=== PATIENT | female | born 1980 | race African-American/Black ===

== ENCOUNTER 2020-02-26 14:46 | Outpatient (REF) | payer OTHER, SELFPAY ==
[2020-02-27 09:37] LABS: BV Int Neg Control Negative (Negative); BV Int Pos Control Positive (Positive)
[2020-02-29 08:42] LABS: HPV mRNA E6/E7 rflx Not Detected (Not Detected)
[2020-03-03 11:32] LABS: CT PCR NOT DETECTED (Not Detect.); NG PCR NOT DETECTED (Not Detect.)
== END 2020-02-26 14:47 | disposition home or self-care (01) ==
LOC: HO.LAB 14:46
PROVIDERS: Visit Provider Advanced Practice Midwife
DX: Z01.419 Encounter for gynecological examination (general) (routine) without abnormal findings (principal); N89.8 Other specified noninflammatory disorders of vagina; I10 Essential (primary) hypertension; E66.9 Obesity, unspecified; R87.610 Atypical squamous cells of undetermined significance on cytologic smear of cervix (ASC-US); Z30.09 Encounter for other general counseling and advice on contraception; Z20.2 Contact with and (suspected) exposure to infections with a predominantly sexual mode of transmission; Z79.899 Other long term (current) drug therapy
CPT/HCPCS: 87480; 87491; 87510; 87591; 87624; 87625; 87660; 88142

== ENCOUNTER 2021-01-26 10:56 | Outpatient (REF) | payer SELFPAY ==
[2021-01-26 11:10] LABS: Hematocrit 34.9 % (37.0-47.0); Hemoglobin 11.2 g/dl (12.0-16.0); Mean Corpuscular HGB Conc 32.1 g/dl (31.0-35.0); Mean Corpuscular Hemoglobin 29.2 pg (27.0-33.0); Mean Corpuscular Volume 91.1 fL (80.0-98.0); Mean Platelet Volume 8.8 fL (9.4-12.3); Platelet Count 373 X10*3/uL (160-400); Red Blood Count 3.83 X10*6/uL (4.20-5.50); Red Cell Distribution Width 16.1 % (11.0-16.0); White Blood Count 5.7 X10*3/uL (4.8-10.8)
[2021-01-26 11:55] LABS: Estimated Average Glucose 103 mg/dL; Hemoglobin A1c % 5.2 %
[2021-01-26 12:10] LABS: TSH reflex Free T4 1.75 uIU/mL (0.32-4.0)
[2021-01-26 12:15] LABS: Creatinine Urine 73.11 mg/dL; Microalbum/Creatinine Ratio Ur 28.7 ug/mg cr
[2021-01-26 12:24] LABS: Alanine Aminotransferase 13 U/L (0-31); Alkaline Phosphatase 53 U/L (39-117); Anion Gap 10 (12-20); Aspartate Amino Transferase 21 U/L (5-31); Bilirubin Total 0.4 mg/dL (0.0-1.0); Blood Urea Nitrogen 9 mg/dL (9-16); Calcium 9.3 mg/dL (8.4-10.2); Carbon Dioxide 29 mmol/L (22-29); Chloride 103 mmol/L (96-108); Cholesterol 174 mg/dL; Estimated Glomerular Filt Rate > 60; Glucose Fasting 99 mg/dL (60-99); HDL Cholesterol 69 mg/dL; LDL Cholesterol Calculated 93 mg/dl; Sodium 138 mmol/L (135-145); Total Protein 6.9 g/dL (6.5-8.0); Triglycerides 60 mg/dL
== END 2021-01-26 10:57 | disposition home or self-care (01) ==
LOC: HO.LAB 10:56
PROVIDERS: PCP Physician Assistant; Visit Provider Physician Assistant
DX: I10 Essential (primary) hypertension (principal); E66.9 Obesity, unspecified
CPT/HCPCS: 36415; 80053; 80061; 82043; 83036; 84443; 85027

== ENCOUNTER 2022-04-20 08:30 | Outpatient (REF) | payer OTHER, SELFPAY ==
[2022-04-22 17:58] LABS: HPV mRNA E6/E7 rflx Not Detected (Not Detected)
== END 2022-04-20 08:31 | disposition home or self-care (01) ==
LOC: HO.LNP 08:30
PROVIDERS: PCP Physician Assistant; Visit Provider Advanced Practice Midwife
DX: Z01.419 Encounter for gynecological examination (general) (routine) without abnormal findings (principal); Z11.51 Encounter for screening for human papillomavirus (HPV); N89.8 Other specified noninflammatory disorders of vagina; F43.9 Reaction to severe stress, unspecified
CPT/HCPCS: 81003; 87624; 88142

== ENCOUNTER 2022-04-20 09:14 | Outpatient (REF) | payer OTHER, SELFPAY ==
[2022-04-21 09:00] LABS: BV Int Neg Control Negative (Negative); BV Int Pos Control Positive (Positive)
== END 2022-04-20 09:15 | disposition home or self-care (01) ==
LOC: HO.LAB 09:14
PROVIDERS: Visit Provider Advanced Practice Midwife
DX: N89.8 Other specified noninflammatory disorders of vagina (principal)
CPT/HCPCS: 87480; 87510; 87660

== ENCOUNTER 2023-01-26 09:09 | Outpatient (AMB) | payer OTHER, SELFPAY ==
[2023-01-26 09:14] VITALS: BP 166/102; PULSE 96; RESP 16; O2SAT 98; BMI 41.4
--- NOTE | 2023-01-26 09:14 | A.OFFPC_ITS ---
Vital Signs 01/26/23 09:14 Height 5 ft 10 in Weight 288 lb 6 oz BMI 41.4 BP 166/102 H Blood Pressure Location Lt brachial Position Sitting Respiration 16 Pulse 96 Pulse Source Pulse Oximeter Pulse Oximetry (%) 98 Oxygen Delivery Method Room Air Intake Visit Reasons: Annual Exam+ NEEDS PHQ9/THRIVE Intake Note: Patient is here today for a physical. 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 Accompanied by: Self / Same As Patient Allergies codeine [CODEINE] Allergy (Intermediate, Verified 01/26/23 09:26) ANGIOEDEMA,HIVES,ITCHY Medication List - Last Reconciled 01/26/23 by Joseph Bradley PA-C cholecalciferol (vitamin D3) 50 mcg PO DAILY 90 days clotrimazole 1% topical hydrochlorothiazide 25 mg PO DAILY 90 days lisinopril 40 mg PO DAILY 90 days Tobacco use date assessed: 01/26/23 Dental Screening Dental Screen Date: 01/26/23 Did you have a dental visit in the last 12 months?: Yes Did you have a dental problem in the last 6 months where you did not have access to dental care?: No Was dental information given to patient?: Patient has dentist HPI Annual Exam+ NEEDS PHQ9/THRIVE HPI Details Paige is a 42 y/o F here today for a PE. Past medical history of hypertension, obesity, chronic bilateral ear congestion and frequent infections .. HTN: todays blood pressure elevated , she believes her blood pressure elevated due to poor eating habits lately. She reports blood pressures at home have been more stable 120s to 130s systolic. .. Obesity: Have noted weight gain since last office visit.? She does understand she does need to reduce her weight with diet and exercise.? Has been trying to increase her physical activity and go to the gym. .. Recurrent otitis media: Has followed up with ENT, has found to have bilateral fungal ear infections. She was started on topical antifungal treatment.. She does report getting MRI of her contour structures and is awaiting on results. 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 ?Vaccines:? UTD with COVID vaccine, Up-to-date with Tdap , Declines FLu vaccine today .. Mammo: Needs screening mammogram- has been ordered by MACHINE SETUP OPERATOR Laboratory Tests 01/26/21 11:00 Creatinine 0.89 Hemoglobin A1c % 5.2 Cholesterol 174 PFSH Medical History Atypical squamous cells of undetermined significance (ASC-US) on cervical Pap smear LEANN II (cervical intraepithelial neoplasia II) Essential hypertension Surgical History H/O LEEP Hx of tooth extraction History of therapeutic Hx of section Family History Paternal Grandfather History of throat cancer Father Diabetes CVD (cardiovascular disease) Hypertension Mother Hypertension Brother Hypertension Brother In good health Daughter In good health Daughter In good health Social History (Updated 01/26/23 @ 09:30 by Joseph Bradley PA-C) Housing: House Alcohol intake: current Alcohol intake frequency: holidays/special occasions only Patient Tobacco Use Status: Former Tobacco user Quit Date: 2015 e-Cigarette/Vaping Use: Never Used service: No Current occupational status: employed 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 1. Little interest or pleasure in doing things: not at all 2. Feeling down, depressed, or hopeless: not at all 3. Trouble falling or staying asleep, or sleeping too much: not at all 4. Feeling tired or having little energy: not at all 5. Poor appetite or overeating: not at all 6. Feeling bad about yourself - or that you are a failure or have let yourself or your family down: not at all 7. Trouble concentrating on things, such as reading the newspaper or watching television: not at all 8. Moving or speaking so slowly that other people could have noticed. Or the opposite - being so fidgety or restless that you have been moving around a lot more than usual: not at all 9. Thoughts that you would be better off or of hurting yourself in some way: not at all Total score: 0 Depression Screening Interpretation: Negative Depression Screening Done: Yes 69482 - PHQ-9 Billing: Yes Source: Developed by Drs. Hernando Woodard, Naun Santana and colleagues, with an educational garry from [employer]. Thrive Questionnaire Date Thrive assessed: 01/26/23 I am a: Patient What is your living situation today?: I have a steady place to live Within the past 12 months, did the food you bought not last and you didn't have the money to get more?: Never true Within the past 12 months, did you worry whether your food would run out before you got money to buy more?: Never true Do you have trouble paying for medicines?: No Do you have trouble getting transportation to medical appointments?: No Do you have trouble paying your heating and electricity bill?: No Do you have trouble taking care of your child, family member or friend?: No Do you have trouble with day-to-day activities such as bathing, preparing meals, shopping, managing finances, etc.?: No Are you currently unemployed and looking for a job?: No Are you interested in more education?: No Please select the resources that you would like help with: None Currently or been in a relationship where the following occur: no concerns reported AUDIT C Alcohol Use Questionnaire (AUDIT-C) 1. How often do you have a drink containing alcohol?: Never 3. How often do you have six or more drinks on one occasion?: Never Total Score: 0 ANAT-7 AMB Questionnaire ANAT-7 Date ANAT - 7 assessed: 01/26/23 Feeling nervous, anxious, or on edge: 0 = Not at all Not being able to stop or control worryin = Not at all Worrying too much about different things: 0 = Not at all Trouble relaxin = Not at all Being so restless that it is hard to sit still: 0 = Not at all Becoming easily annoyed or irritable: 0 = Not at all Feeling afraid as if something awful might happen: 0 = Not at all Total ANAT-7 score (0-4 normal; 5-9 mild; 10-14 moderate; 15-21 severe): 0 Source: Developed by Dorene Greenberg Kurt Kroenke and colleagues, with an educational garry from [employer]. ANAT-7 Assessment Billing ANAT-7 Assessment Tool: ANAT-7 Assessment 93246 Review of Systems Const Denies body aches, Denies chills, Denies excessive sweating, Denies fatigue, Denies fever(s) and Denies headache(s) Eyes Denies blurry vision ENT Denies dysphagia, Denies vertigo, Denies dizziness, Denies headache(s), Denies hearing loss and Denies tinnitus Card Denies chest pain, Denies chest pain with activity, Denies syncope, Denies irregular heart rhythm and Denies dyspnea Resp Denies chest congestion, Denies cough, Denies hemoptysis, Denies dyspnea and Denies wheezing GI Denies abdominal pain, Denies melena, Denies hematochezia, Denies coffee ground emesis, Denies dysphagia, Denies diarrhea, Denies nausea and Denies vomiting Denies urinary frequency, Denies dysuria, Denies urinary hesitancy and Denies urinary urgency Musc Denies arthralgias, Denies limited range of motion, Denies muscle cramps and Denies muscle weakness Skin/Breast Denies rash and Denies skin ulcer Neuro Denies Abnormal speech present, Denies confusion, Denies vertigo, Denies dizziness, Denies syncope, Denies headache(s), Denies memory loss and Denies seizure-like activity Psych Denies anxiety, Denies confusion, Denies depression, Denies memory loss, Denies panic attacks and Denies paranoia Endo Denies excessive sweating, Denies fatigue, Denies flushing, Denies polydipsia and Denies polyuria Aller/Immun Denies wheezing Physical exam (Primary Care) BMI result Body Mass Index 41.4 BMI Assessment/Plan discussion: High Tobacco/Smoking Status: Tobacco use Status Tobacco use date assessed 01/19/22 01/26/23 09:15 Patient Tobacco Use Status Former Tobacco user 01/26/23 09:15 e-Cigarette/Vaping Use Never Used 01/26/23 09:15 Depression Screening Interpretation: Negative Currently or been in a relationship where the following occur: no concerns reported Const Other: OBESE General: cooperative, comfortable, no acute distress, alert and awake; No confusion Orientation/consciousness: oriented to person, oriented to place, patient oriented x3 and No confusion HENMT Head: Yes normocephalic Ears: external ears normal and TM's normal bilaterally Face and sinus: No sinus tenderness Mouth: Normal oral and palatal mucosa present and tongue normal Teeth and gingiva: dentition normal and gingiva normal Throat: Yes posterior oropharynx normal, Yes tonsils normal and Yes uvula midline Eyes Conjunctivae: conjunctivae normal Sclerae: sclerae normal Pupils: Equal, round and reactive pupils present EOM: EOMs intact bilaterally Direct Ophthalmoscopy: No no photophobia Neck Neck: Yes no lymphadenopathy, No tender and Yes no JVD Thyroid: Thyroid normal Carotids: no bruits Chest Chest palpation & inspection: no tenderness Resp Effort & Inspection: normal respiratory effort, no audible wheezes, not labored and no stridor Auscultation: no crackles, no rales, no rhonchi and no wheezes Cardio Jugular venous distension: no JVD Rate: regular rate, not bradycardic and not tachycardic Rhythm: regular rhythm Bruits: no carotid bruits Peripheral pulses: Peripheral pulses 2+ throughout GI Inspection: Yes normal to inspection, No abdominal wall ecchymosis and No visible herniation Palpation (GI): Soft to palpation, nontender, no guarding, not rigid and No hepatosplenomegaly present Auscultation: normoactive bowel sounds General: Yes no CVA tenderness Back/Spine/Pelvis Back: no CVA tenderness and No back tenderness Cervical Spine: cervical ROM normal Thoracic/Lumbar Spine: thoracic and lumbar spine normal to inspection, straight leg raise negative bilaterally, No thoraco-lumbar ROM limited and No lumbar spinal tenderness Skin Lesions: no lesions Rashes: no rashes Wounds: no wounds Neuro General: oriented to person, oriented to place, patient oriented x3, CN's II-XI intact bilaterally and No confusion Cranial nerves: Yes Equal, round and reactive pupils present and Yes Normal accommodation reflex present Cognition (Neuro): normal cognition Speech: No Abnormal speech present Gait exam (Neuro): Normal gait present Motor exam (neuro): 5/5 motor strength present throughout Extrem Right upper extremity: full ROM; no cyanosis Left upper extremity: full ROM; no cyanosis Right lower extremity: no edema Left lower extremity: no edema Psych Appearance: grossly normal Mental Status: mental status grossly normal Affect: normal affect Attitude: cooperative Thought process: Normal thought process present Assessment and Plan Assessment & Plan (1) Annual physical exam: Code(s): Z00.00 - Encounter for general adult medical examination without abnormal findings (2) Obese: Code(s): E66.9 - Obesity, unspecified Qualifiers: Obesity type: due to excess calories Obesity classification: adult class 3 (BMI >= 40) Serious obesity comorbidity presence: without serious comorbidity Body mass index: BMI 40.0-44.9 Qualified Code(s): E66.01 - Morbid (severe) obesity due to excess calories; Z68.41 - Body mass index [BMI]40.0- 44.9, adult Plan: Patient does understand her BMI is over 30 will work on being more physically active and adapting to better eating habits to reduce her weight. Has been using some natural supplements and has been able to lose some weight since last office visit. (3) Essential hypertension: Code(s): I10 - Essential (primary) hypertension Plan: Blood pressure elevated today in office. She does understand her blood pressure elevates when she is not on regular exercise routine and heating poorly.. She normally gets 120s to 130 systolic at home. Will continue her current dose of blood pressure medications at this time. Goal blood pressure to be more consistently below 140/90. (4) Recurrent otitis media: Code(s): H66.90 - Otitis media, unspecified, unspecified ear Qualifiers: Otitis media type: suppurative Chronicity: acute Laterality: bilateral Spontaneous tympanic membrane rupture: without spontaneous rupture Qualified Code(s): H66.006 - Acute suppurative otitis media without spontaneous rupture of ear drum, recurrent, bilateral Plan: Has followed up with ENT specialist. Was found to have bilateral ear fungal infections. Has given it topical fungal treatment which has resolved her symptoms. Has had recent MRI of brain and is awaiting results. (5) Anemia: Code(s): D64.9 - Anemia, unspecified Qualifiers: Anemia type: unspecified type Qualified Code(s): D64.9 - Anemia, unspecified Plan: Noted anemia most recent labs. Will recheck her CBC. Orders: Orders Comprehensive Yeso. Panel Fast Today I10 - Essential (primary) hypertension Microalbumin, Random (w Creat) Today I10 - Essential (primary) hypertension Complete Blood Count no Diff Today I10 - Essential (primary) hypertension IRON PROFILE Today D50.9 - Iron deficiency anemia, unspecified, D64.9 - Anemia, unspecified Medications: New lisinopril 40 mg PO DAILY 90 days 90 tabs 1RF I10 - Essential (primary) hypertension Refilled cholecalciferol (vitamin D3) 50 mcg PO DAILY 90 days 90 tabs 2RF E66.01 - Morbid (severe) obesity due to excess calories, Z68.41 - Body mass index [BMI] 40.0-44.9, adult hydrochlorothiazide 25 mg PO DAILY 90 days 90 tabs 1RF I10 - Essential (primary) hypertension Discontinued lisinopril Discontinued Reason: Doctor's Order 30 mg PO DAILY 90 days 90 tabs 1RF I10 - Essential (primary) hypertension Coding Level of Care Code Est Pt Prev Care 40-64y(81981) Diagnoses Annual physical exam Z00.00 Class 3 severe obesity due to excess calories without serious comorbidity with body mass index (BMI) of 40.0 to 44.9 in adult E66.01; Z68.41 Obesity type: due to excess calories Obesity classification: adult class 3 (BMI >= 40) Serious obesity comorbidity presence: without serious comorbidity Body mass index: BMI 40.0-44.9 Essential hypertension I10 Recurrent acute suppurative otitis media without spontaneous rupture of tympanic membrane of both sides H66.006 Otitis media type: suppurative Chronicity: acute Laterality: bilateral Spontaneous tympanic membrane rupture: without spontaneous rupture Anemia, unspecified type D64.9 Anemia type: unspecified type Additional Codes ANAT-7 Assessment Billing - ANAT-7 Assessment Tool: ANAT-7 Assessment [id number] ([id number])
== END 2023-01-26 09:55 | disposition home or self-care (01) ==
PROVIDERS: Visit Provider Physician Assistant
DX: Z00.00 Encounter for general adult medical examination without abnormal findings (principal); E66.01 Morbid (severe) obesity due to excess calories; Z68.41 Body mass index [BMI] 40.0-44.9, adult; I10 Essential (primary) hypertension; H66.006 Acute suppurative otitis media without spontaneous rupture of ear drum, recurrent, bilateral; D64.9 Anemia, unspecified
CPT/HCPCS: 99396

== ENCOUNTER 2023-11-01 10:18 | Outpatient (AMB) | payer OTHER, SELFPAY ==
--- NOTE | 2023-11-01 10:28 | A.OFFPC_ITS ---
Vital Signs 11/01/23 10:33 Height 5 ft 10 in Weight 284 lb 4 oz BMI 40.8 BP 136/88 Blood Pressure Location Lt brachial Position Sitting Pulse 103 H Pulse Source Pulse Oximeter Pulse Oximetry (%) 98 Oxygen Delivery Method Room Air Intake Visit Reasons: f/u HTN Medical Lab Technologist Required: No Accompanied by: Self / Same As Patient Allergies codeine [CODEINE] Allergy (Intermediate, Verified 11/01/23 10:54) ANGIOEDEMA,HIVES,ITCHY Medication List - Last Reconciled 11/01/23 by Joseph Bradley PA-C cholecalciferol (vitamin D3) 50 mcg PO DAILY 90 days clotrimazole 1% topical hydrochlorothiazide 25 mg PO DAILY 90 days lisinopril 40 mg PO DAILY 90 days Tobacco use date assessed: 11/01/23 Dental Screening Dental Screen Date: 11/01/23 Did you have a dental visit in the last 12 months?: Yes Did you have a dental problem in the last 6 months where you did not have access to dental care?: No Was dental information given to patient?: Patient has dentist HPI f/u HTN HPI Details Paige is a 43 y/o F here today for a follow-up visit Past medical history of hypertension, obesity, chronic bilateral ear congestion and frequent infections .. HTN: todays blood pressure acceptable today in office. Patient continues on hydrochlorothiazide and lisinopril 40 mg. She reports blood pressures at home have been more stable 120s to 130s systolic. .. Obesity: Has lost a few lb since last office visit? She does understand she does need to reduce her weight with diet and exercise.? Has been trying to increase her physical activity and go to the gym. .. Recurrent otitis media: Has followed up with ENT, has found to have bilateral fungal ear infections. She was started on topical antifungal treatment.. She did get an MRI of her auditory canal which did show an artery that was near her auditory canal. She does often here in heartbeat in her right ear to which he attributes to elevated blood pressures at the time. [facility] Medical History Atypical squamous cells of undetermined significance (ASC-US) on cervical Pap smear LEANN II (cervical intraepithelial neoplasia II) Essential hypertension Surgical History H/O LEEP Hx of tooth extraction History of therapeutic Hx of section Family History Paternal Grandfather History of throat cancer Father Diabetes CVD (cardiovascular disease) Hypertension Mother Hypertension Brother Hypertension Brother In good health Daughter In good health Daughter In good health Social History Housing: House Alcohol intake: current Alcohol intake frequency: holidays/special occasions only Patient Tobacco Use Status: Former Tobacco user e-Cigarette/Vaping Use: Never Used service: No Current occupational status: employed 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 1. Little interest or pleasure in doing things: not at all 2. Feeling down, depressed, or hopeless: not at all 3. Trouble falling or staying asleep, or sleeping too much: not at all 4. Feeling tired or having little energy: not at all 5. Poor appetite or overeating: not at all 6. Feeling bad about yourself - or that you are a failure or have let yourself or your family down: not at all 7. Trouble concentrating on things, such as reading the newspaper or watching television: not at all 8. Moving or speaking so slowly that other people could have noticed. Or the opposite - being so fidgety or restless that you have been moving around a lot more than usual: not at all 9. Thoughts that you would be better off or of hurting yourself in some way: not at all Total score: 0 Depression Screening Interpretation: Negative Depression Screening Done: Yes 79450 - PHQ-9 Billing: Yes Source: Developed by Drs. Hernando Woodard, Dorene Ramon, Naun Phan and colleagues, with an educational garry from [employer]. Thrive Questionnaire Date Thrive assessed: 11/01/23 I am a: Patient What is your living situation today?: I have a steady place to live Within the past 12 months, did the food you bought not last and you didn't have the money to get more?: Never true Within the past 12 months, did you worry whether your food would run out before you got money to buy more?: Never true Do you have trouble paying for medicines?: No Do you have trouble getting transportation to medical appointments?: No Do you have trouble paying your heating and electricity bill?: No Do you have trouble taking care of your child, family member or friend?: No Do you have trouble with day-to-day activities such as bathing, preparing meals, shopping, managing finances, etc.?: No Are you currently unemployed and looking for a job?: No Are you interested in more education?: No Please select the resources that you would like help with: None Currently or been in a relationship where the following occur: No concerns reported THRIVE Score: 0 AUDIT C Alcohol Use Questionnaire (AUDIT-C) 1. How often do you have a drink containing alcohol?: Never 3. How often do you have six or more drinks on one occasion?: Never Total Score: 0 ANAT-7 AMB Questionnaire ANAT-7 Date ANAT - 7 assessed: 11/01/23 Feeling nervous, anxious, or on edge: 0 = Not at all Not being able to stop or control worryin = Not at all Worrying too much about different things: 0 = Not at all Trouble relaxin = Not at all Being so restless that it is hard to sit still: 0 = Not at all Becoming easily annoyed or irritable: 0 = Not at all Feeling afraid as if something awful might happen: 0 = Not at all Total ANAT-7 score (0-4 normal; 5-9 mild; 10-14 moderate; 15-21 severe): 0 Source: Developed by Drs. Hernando Woodard, Doerne Ramon, Naun Phan and colleagues, with an educational garry from [employer]. ANAT-7 Assessment Billing ANAT-7 Assessment Tool: ANAT-7 Assessment 54901 Review of Systems Const Denies headache(s) Eyes Denies loss of vision ENT Denies vertigo, Denies dizziness, Denies headache(s) and Denies sore throat Card Denies chest pain, Denies leg edema and Denies lightheadedness Resp Denies cough, Denies hemoptysis and Denies wheezing GI Denies abdominal pain, Denies melena, Denies constipation, Denies diarrhea and Denies vomiting Denies urinary frequency, Denies dysuria and Denies urinary urgency Musc Denies arthralgias, Denies joint swelling, Denies numbness and Denies tingling Neuro Denies Abnormal speech present, Denies behavioral changes, Denies vertigo, Denies dizziness, Denies headache(s), Denies loss of vision, Denies memory loss, Denies numbness and Denies tingling Psych Denies anxiety, Denies behavioral changes, Denies depression, Denies memory loss and Denies panic attacks Girish/Lymph Denies easy bleeding and Denies easy bruising Aller/Immun Denies wheezing Physical exam (Primary Care) Vital Signs: Last Vital Signs Pulse 103 H 11/01/23 10:33 BP 136/88 11/01/23 10:33 Pulse Ox 98 11/01/23 10:33 Oxygen Delivery Method Room Air 11/01/23 10:33 BMI result Body Mass Index 40.8 BMI Assessment/Plan discussion: High BMI High, discussed plan: lifestyle, weight reduction, dietary and physical activity Tobacco/Smoking Status: Tobacco use Status Tobacco use date assessed 11/01/23 11/01/23 10:39 Patient Tobacco Use Status Former Tobacco user 11/01/23 10:28 e-Cigarette/Vaping Use Never Used 11/01/23 10:28 PHQ-9: PHQ-9 Score PHQ-9: Total score 0 11/01/23 10:56 Depression Screening Interpretation: Negative Thrive Assessment: Date of Thrive Assessment Date Thrive assessed 11/01/23 11/01/23 10:39 Currently or been in a relationship where the following occur: No concerns reported Const General: healthy appearing, no acute distress, alert and awake Nutritional Appearance: well nourished Orientation/consciousness: oriented to person, oriented to place and oriented to time HENMT Ears: TM's normal bilaterally General nose exam: Normal nasal mucous membranes and turbinates present Eyes Conjunctivae: conjunctivae normal Sclerae: sclerae normal Pupils: Equal, round and reactive pupils present Neck Neck: Yes no lymphadenopathy and Yes no JVD Thyroid: Thyroid normal Carotids: no bruits Resp Effort & Inspection: normal respiratory effort and not tachypneic Auscultation: no crackles, no rales, no rhonchi and no wheezes Cardio Rate: regular rate Rhythm: regular rhythm Heart sounds: no murmurs and normal S1 and S2 GI Palpation (GI): Soft to palpation, nontender, no hepatomegaly and no splenomegaly Auscultation: normal bowel sounds Skin General skin exam: no rashes or lesions noted and dry skin Neuro General: oriented to person, oriented to place and oriented to time Cranial nerves: Yes Equal, round and reactive pupils present Speech: No Abnormal speech present Gait exam (Neuro): Normal gait present Motor exam (neuro): no tremor noted Extrem Right upper extremity: full ROM Left upper extremity: full ROM Right lower extremity: full ROM; no edema Left lower extremity: full ROM; no edema Psych Mental Status: mental status grossly normal Speech and movement: Normal speech and movement present Affect: normal affect Attitude: cooperative Thought process: Normal thought process present Assessment and Plan Assessment & Plan (1) Obese: Code(s): E66.9 - Obesity, unspecified Qualifiers: Body mass index: BMI 40.0-44.9 Obesity classification: adult class 3 (BMI >= 40) Obesity type: due to excess calories Serious obesity comorbidity presence: without serious comorbidity Qualified Code(s): E66.01 - Morbid (severe) obesity due to excess calories; Z68.41 - Body mass index [BMI]40.0- 44.9, adult Plan: Patient does understand her BMI is over 30 will work on being more physically active and adapting to better eating habits to reduce her weight. Has been using some natural supplements and has been able to lose some weight since last office visit. Patient is interested in trying a GLP 1 to help her with weight loss as she has not been able to lose much weight on her own. She does have a comorbidity with hypertension and would would be a good candidate for this medication. (2) Essential hypertension: Code(s): I10 - Essential (primary) hypertension Plan: Blood pressure acceptable today. She continues with lisinopril and hydrochlorothiazide with good effect. She normally gets 120s to 130 systolic at home. Will continue her current dose of blood pressure medications at this time. Goal blood pressure to be more consistently below 140/90. Medications: New semaglutide (weight loss) (Leonel) administer weeks 1 through 4 of therapy 0.25 mg (0.5 mL) subcut QWEEK 2 mL 0RF 4 weeks E66.01 - Morbid (severe) obesity due to excess calories, I10 - Essential (primary) hypertension, Z68.41 - Body mass index [BMI] 40.0-44.9, adult Patient Instructions: Goal: Blood pressure to remain below 140/90 Barriers: Adherence to physical activity and healthy eating habits Coding Level of Care Code Est Pt Level 4 (88787) Diagnoses Class 3 severe obesity due to excess calories without serious comorbidity with body mass index (BMI) of 40.0 to 44.9 in adult E66.01; Z68.41 Body mass index: BMI 40.0-44.9 Obesity classification: adult class 3 (BMI >= 40) Obesity type: due to excess calories Serious obesity comorbidity presence: without serious comorbidity Essential hypertension I10 Additional Codes ANAT-7 Assessment Billing - ANAT-7 Assessment Tool: ANAT-7 Assessment [id number] ([id number])
[2023-11-01 10:33] VITALS: BP 136/88; PULSE 103; O2SAT 98; BMI 40.8
== END 2023-11-01 11:15 | disposition home or self-care (01) ==
PROVIDERS: PCP Physician Assistant; Visit Provider Physician Assistant
DX: I10 Essential (primary) hypertension (principal); E66.01 Morbid (severe) obesity due to excess calories; Z68.41 Body mass index [BMI] 40.0-44.9, adult
CPT/HCPCS: 99214

== ENCOUNTER 2024-03-05 09:58 | Outpatient (REF) | payer OTHER, SELFPAY ==
[2024-03-05 12:13] LABS: Hematocrit 31.4 % (37.0-47.0); Mean Corpuscular HGB Conc 31.8 g/dl (31.0-35.0); Mean Corpuscular Hemoglobin 27.5 pg (27.0-33.0); Mean Corpuscular Volume 86.5 fL (80.0-98.0); Mean Platelet Volume 9.3 fL (9.4-12.3); Platelet Count 367 X10*3/uL (160-400); Red Blood Count 3.63 X10*6/uL (4.20-5.50); Red Cell Distribution Width 17.2 % (11.0-16.0); White Blood Count 4.5 X10*3/uL (4.8-10.8)
[2024-03-05 13:12] LABS: Alanine Aminotransferase 17 U/L (0-31); Albumin Level 3.9 g/dL (3.5-5.0); Alkaline Phosphatase 53 U/L (39-117); Anion Gap 11 (12-20); Aspartate Amino Transferase 24 U/L (5-31); Bilirubin Total 0.4 mg/dL (0.0-1.0); Blood Urea Nitrogen 11 mg/dL (9-16); Calcium 9.2 mg/dL (8.4-10.2); Carbon Dioxide 30 mmol/L (22-29); Chloride 102 mmol/L (96-108); Estimated Glomerular Filt Rate > 60; Glucose Fasting 89 mg/dL (60-99); Iron 49 mcg/dL (30-160); Percent Iron Saturation 17 % (15-50); Potassium 4.1 mmol/L (3.3-5.1); Sodium 139 mmol/L (135-145); Total Iron Binding Capacity 292 mcg/dL (228-428); Total Protein 7.1 g/dL (6.5-8.0); Unsaturated Iron Binding 243 ug/dL
[2024-03-05 13:17] LABS: Creatinine Urine 42.26 mg/dL; Microalbumin Urine < 5.0 mg/L
[2024-03-06 15:28] LABS: Follicle Stimulating Hormone 9.2 mIU/mL
== END 2024-03-05 09:59 | disposition home or self-care (01) ==
LOC: HO.LAB 09:58
PROVIDERS: PCP Physician Assistant; Visit Provider Physician Assistant
DX: I10 Essential (primary) hypertension (principal); D50.9 Iron deficiency anemia, unspecified; D64.9 Anemia, unspecified; N92.6 Irregular menstruation, unspecified; Z00.00 Encounter for general adult medical examination without abnormal findings; E66.813 Obesity, class 3; M25.551 Pain in right hip; Z23 Encounter for immunization
CPT/HCPCS: 36415; 80053; 82043; 82570; 83001; 83540; 85027; 90471; 96127; 99396

== ENCOUNTER 2024-03-05 09:58 | Outpatient (AMB) | payer OTHER, SELFPAY ==
--- NOTE | 2024-03-05 10:20 | MHC.PC.OV ---
Vital Signs 03/05/24 10:25 Height 5 ft 10 in Weight 284 lb BMI 40.7 BP 134/96 H Blood Pressure Location Rt brachial Position Sitting Pulse 105 H Pulse Source Pulse Oximeter Pulse Oximetry (%) 100 Oxygen Delivery Method Room Air Intake Visit Reasons: Annual Exam Intake Note: Patient is here today for a physical. 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: No Accompanied by: Self / Same As Patient Allergies codeine [CODEINE] Allergy (Intermediate, Verified 03/05/24 10:27) ANGIOEDEMA,HIVES,ITCHY amlodipine Adverse Reaction (Intermediate, Verified 03/05/24 10:38) pedal edema Medication List - Last Reconciled 03/05/24 by Joseph Bradley PA-C cholecalciferol (vitamin D3) 50 mcg PO DAILY 90 days clotrimazole 1% topical hydrochlorothiazide 25 mg PO DAILY 90 days lisinopril 40 mg PO DAILY 90 days semaglutide (weight loss) (Wegovy) 0.25 mg (0.5 mL) subcut QWEEK 4 weeks Tobacco use date assessed: 11/01/23 Dental Screening Dental Screen Date: 11/01/23 HPI Annual Exam HPI Details Paige is a 43 y/o F here today for an annual physical Past medical history of hypertension, obesity, chronic bilateral ear congestion and frequent infections Concern--> The patient reports right hip pain, which she has observed worsening over time and suspects is due to arthritis. .. HTN: todays blood pressure acceptable today in office. Patient continues on hydrochlorothiazide and lisinopril 40 mg. She reports blood pressures at home have been more stable 120s to 130s systolic. .. Obesity: Has lost a few lb since last office visit? She does understand she does need to reduce her weight with diet and exercise.? Has been trying to increase her physical activity and go to the gym. .. Recurrent otitis media: Has followed up with ENT, has found to have bilateral fungal ear infections. She was started on topical antifungal treatment.. She did get an MRI of her auditory canal which did show an artery that was near her auditory canal. She does often here in heartbeat in her right ear to which he attributes to elevated blood pressures at the time. DATA ARCHITECT:? Patient is followed [facility] and has gotten recentt PAP.? Patient does have mammogram order from her necktie turner. ?Vaccines:? UTD with COVID vaccine, Up-to-date with Tdap , Got flu vaccine at work , .. Mammo: --> Additional history includes the presence of dense breast tissue and a pronounced phobia of mammograms. This phobia is due in part to a past painful experience and reports of inadequate imaging due to breast density. She mentions being evaluated earlier than usual screening age due to breast pain and now seeks alternative diagnostic options such as MRI, expressing concern over insurance coverage [facility] Medical History Atypical squamous cells of undetermined significance (ASC-US) on cervical Pap smear LEANN II (cervical intraepithelial neoplasia II) Essential hypertension Surgical History H/O LEEP Hx of tooth extraction History of therapeutic Hx of section Family History Paternal Grandfather History of throat cancer Father Diabetes CVD (cardiovascular disease) Hypertension Mother Hypertension Brother Hypertension Brother In good health Daughter In good health Daughter In good health Social History Housing: House Alcohol intake: current Alcohol intake frequency: holidays/special occasions only Patient Tobacco Use Status: Former Tobacco user e-Cigarette/Vaping Use: Never Used service: No Current occupational status: employed 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 1. Little interest or pleasure in doing things: not at all 2. Feeling down, depressed, or hopeless: not at all 3. Trouble falling or staying asleep, or sleeping too much: not at all 4. Feeling tired or having little energy: not at all 5. Poor appetite or overeating: not at all 6. Feeling bad about yourself - or that you are a failure or have let yourself or your family down: not at all 7. Trouble concentrating on things, such as reading the newspaper or watching television: not at all 8. Moving or speaking so slowly that other people could have noticed. Or the opposite - being so fidgety or restless that you have been moving around a lot more than usual: not at all 9. Thoughts that you would be better off or of hurting yourself in some way: not at all Total score: 0 Depression Screening Interpretation: Negative Depression Screening Done: Yes 44962 - PHQ-9 Billing: Yes Source: Developed by Drs. Hernando Woodard, Dorene Ramon, Naun Phan and colleagues, with an educational garry from [employer]. Thrive Questionnaire Date Thrive assessed: 03/05/24 I am a: Patient What is your living situation today?: I have a steady place to live Within the past 12 months, did the food you bought not last and you didn't have the money to get more?: Never true Within the past 12 months, did you worry whether your food would run out before you got money to buy more?: Never true Do you have trouble paying for medicines?: No Do you have trouble getting transportation to medical appointments?: No Do you have trouble paying your heating and electricity bill?: No Do you have trouble taking care of your child, family member or friend?: No Do you have trouble with day-to-day activities such as bathing, preparing meals, shopping, managing finances, etc.?: No Are you currently unemployed and looking for a job?: No Are you interested in more education?: No Please select the resources that you would like help with: None Currently or been in a relationship where the following occur: No concerns reported THRIVE Score: 0 AUDIT C Alcohol Use Questionnaire (AUDIT-C) 1. How often do you have a drink containing alcohol?: Never 3. How often do you have six or more drinks on one occasion?: Never Total Score: 0 ANAT-7 AMB Questionnaire ANAT-7 Date ANAT - 7 assessed: 03/05/24 Feeling nervous, anxious, or on edge: 0 = Not at all Not being able to stop or control worryin = Not at all Worrying too much about different things: 0 = Not at all Trouble relaxin = Not at all Being so restless that it is hard to sit still: 0 = Not at all Becoming easily annoyed or irritable: 0 = Not at all Feeling afraid as if something awful might happen: 0 = Not at all Total ANAT-7 score (0-4 normal; 5-9 mild; 10-14 moderate; 15-21 severe): 0 Source: Developed by Drs. Hernando Woodard, Dorene Ramon, Naun Phan and colleagues, with an educational garry from [employer]. ANAT-7 Assessment Billing ANAT-7 Assessment Tool: ANAT-7 Assessment 23981 Review of Systems Const Denies body aches, Denies chills, Denies excessive sweating, Denies fatigue, Denies fever(s) and Denies headache(s) Eyes Denies blurry vision ENT Denies dysphagia, Denies vertigo, Denies dizziness, Denies headache(s), Denies hearing loss and Denies tinnitus Card Denies chest pain, Denies chest pain with activity, Denies syncope, Denies irregular heart rhythm and Denies dyspnea Resp Denies chest congestion, Denies cough, Denies hemoptysis, Denies dyspnea and Denies wheezing GI Denies abdominal pain, Denies melena, Denies hematochezia, Denies coffee ground emesis, Denies dysphagia, Denies diarrhea, Denies nausea and Denies vomiting Denies urinary frequency, Denies dysuria, Denies urinary hesitancy and Denies urinary urgency Musc Denies arthralgias, Denies limited range of motion, Denies muscle cramps and Denies muscle weakness Skin/Breast Denies rash and Denies skin ulcer Neuro Denies Abnormal speech present, Denies confusion, Denies vertigo, Denies dizziness, Denies syncope, Denies headache(s), Denies memory loss and Denies seizure-like activity Psych Denies anxiety, Denies confusion, Denies depression, Denies memory loss, Denies panic attacks and Denies paranoia Endo Denies excessive sweating, Denies fatigue, Denies flushing, Denies polydipsia and Denies polyuria Aller/Immun Denies wheezing Physical exam (Primary Care) Vital Signs: Last Vital Signs Pulse 105 H 03/05/24 10:25 BP 134/96 H 03/05/24 10:25 Pulse Ox 100 03/05/24 10:25 Oxygen Delivery Method Room Air 03/05/24 10:25 BMI result Body Mass Index 40.7 BMI Assessment/Plan discussion: High BMI High, discussed plan: lifestyle, weight reduction, dietary and physical activity Tobacco/Smoking Status: Tobacco use Status Tobacco use date assessed 11/01/23 03/05/24 10:20 Patient Tobacco Use Status Former Tobacco user 03/05/24 10:20 e-Cigarette/Vaping Use Never Used 03/05/24 10:20 PHQ-9: PHQ-9 Score PHQ-9: Total score 0 03/05/24 10:28 Depression Screening Interpretation: Negative Thrive Assessment: Date of Thrive Assessment Date Thrive assessed 03/05/24 03/05/24 10:28 Currently or been in a relationship where the following occur: No concerns reported Const General: cooperative, comfortable, no acute distress, alert and awake; No confusion Orientation/consciousness: oriented to person, oriented to place, patient oriented x3 and No confusion HENMT Head: Yes normocephalic Ears: external ears normal and TM's normal bilaterally Face and sinus: No sinus tenderness Mouth: Normal oral and palatal mucosa present and tongue normal Teeth and gingiva: dentition normal and gingiva normal Throat: Yes posterior oropharynx normal, Yes tonsils normal and Yes uvula midline Eyes Conjunctivae: conjunctivae normal Sclerae: sclerae normal Pupils: Equal, round and reactive pupils present EOM: EOMs intact bilaterally Direct Ophthalmoscopy: No no photophobia Neck Neck: Yes no lymphadenopathy, No tender and Yes no JVD Thyroid: Thyroid normal Carotids: no bruits Chest Chest palpation & inspection: no tenderness Resp Effort & Inspection: normal respiratory effort, no audible wheezes, not labored and no stridor Auscultation: no crackles, no rales, no rhonchi and no wheezes Cardio Jugular venous distension: no JVD Rate: regular rate, not bradycardic and not tachycardic Rhythm: regular rhythm Bruits: no carotid bruits Peripheral pulses: Peripheral pulses 2+ throughout GI Inspection: Yes normal to inspection, No abdominal wall ecchymosis and No visible herniation Palpation (GI): Soft to palpation, nontender, no guarding, not rigid and No hepatosplenomegaly present Auscultation: normoactive bowel sounds General: Yes no CVA tenderness Back/Spine/Pelvis Back: no CVA tenderness and No back tenderness Cervical Spine: cervical ROM normal Thoracic/Lumbar Spine: thoracic and lumbar spine normal to inspection, straight leg raise negative bilaterally, No thoraco-lumbar ROM limited and No lumbar spinal tenderness Skin Lesions: no lesions Rashes: no rashes Wounds: no wounds Neuro General: oriented to person, oriented to place, patient oriented x3, CN's II-XI intact bilaterally and No confusion Cranial nerves: Yes Equal, round and reactive pupils present and Yes Normal accommodation reflex present Cognition (Neuro): normal cognition Speech: No Abnormal speech present Gait exam (Neuro): Normal gait present Motor exam (neuro): 5/5 motor strength present throughout Extrem Right upper extremity: full ROM; no cyanosis Left upper extremity: full ROM; no cyanosis Right lower extremity: no edema Left lower extremity: no edema Psych Appearance: grossly normal Mental Status: mental status grossly normal Affect: normal affect Attitude: cooperative Thought process: Normal thought process present Office Procedures Flu Questionnaire Does the patient have a severe egg allergy?: No Does the patient have severe life threatening allergies?: No Does the patient have a fever or illness today?: No Has the patient ever had Guillain-[place] Syndrome?: No Has the patient ever had any past reaction to a flu shot?: No Immunizations Fluarix Triv [id number] (PF) 45 mcg (15 mcg x 3)/0.5 mL IM syringe Performing Provider: Joseph Bradley PA-C [place] [facility] [place] [facility] Documented (not given) by: ANMOL Blackburn on 03/05/24 10:27 Reason Not Given: Received Previously Coding Level of Care Code Est Pt Prev Care 40-64y(38679) Diagnoses Annual physical exam Z00.00 Essential hypertension I10 Class 3 obesity E66.813 Irregular menses N92.6 Right hip pain M25.551 Additional Codes ANAT-7 Assessment Billing - ANAT-7 Assessment Tool: ANAT-7 Assessment 24316 ([id number]) PHQ-9 - 77389 - PHQ-9 Billing: Yes ([id number]) Assessment & Plan Assessment & Plan (1) Annual physical exam: Code(s): Z00.00 - Encounter for general adult medical examination without abnormal findings Category: Medical Plan: As per HPI (2) Essential hypertension: Code(s): I10 - Essential (primary) hypertension Category: Medical Plan: Continue lisinopril therapy with blood pressure monitoring; consider lifestyle modification to aid in control. Discussed potential transition to amlodipine in case of uncontrolled hypertension with previous side effects of edema documented. (3) Class 3 obesity: Code(s): E66.813 - Obesity, class 3 Category: Medical Plan: Patient does understand her BMI is over 40 and will work on being more physically active and adapting to better eating habits to reduce her weight (4) Irregular menses: Code(s): N92.6 - Irregular menstruation, unspecified Category: Medical Plan: Patient interested in checking her follicle stimulating hormone as she feels she may be perimenopausal. (5) Right hip pain: Code(s): M25.551 - Pain in right hip Category: Medical Plan: Consideration for further diagnostic imaging, possibly an X-ray, to assess for arthritis. Orders: Orders Microalbumin, Random (w Creat) 03/05/24 I10 - Essential (primary) hypertension IRON PROFILE 03/05/24 D50.9 - Iron deficiency anemia, unspecified, D64.9 - Anemia, unspecified Follicle Stimulating Hormone 03/05/24 N92.6 - Irregular menstruation, unspecified Influenza [id number] Immunization 03/05/24 Z23 - Encounter for immunization Comprehensive [place]. Panel Fast 03/05/24 I10 - Essential (primary) hypertension Complete Blood Count no Diff 03/05/24 I10 - Essential (primary) hypertension XR hip RT min 2V 03/05/24 M25.551 - Pain in right hip
[2024-03-05 10:25] VITALS: BP 134/96; PULSE 105; O2SAT 100; BMI 40.7
== END 2024-03-05 10:48 | disposition home or self-care (01) ==
PROVIDERS: PCP Physician Assistant; Visit Provider Physician Assistant
DX: Z00.00 Encounter for general adult medical examination without abnormal findings (principal); Z68.41 Body mass index [BMI] 40.0-44.9, adult; E66.813 Obesity, class 3; I10 Essential (primary) hypertension; N92.6 Irregular menstruation, unspecified; M25.551 Pain in right hip